=== PATIENT | male | born 1935 | race Caucasian/White ===

== ENCOUNTER 2016-10-01 18:00 | Outpatient (RCR) | payer MEDICARE, OTHER ==
[~2016-10-01 18:00] MED LIST: AC500T PO; ASP81CT PO; ATRV10T PO; CHOL200035 PO; FERR-57 PO; LEVO75TA57 PO; MELO15TA14 PO; METR500T PO; MTF500T PO; MULT-963 PO; NF-ESOM40C PO; OMEG1CAP51 PO; OMEG1CAP74 PO; PANT40TA PO; PEG250PW PO; UBID100C17 PO; VITAMIN D3
--- OUTSIDE RECORDS SUMMARY | 2016-10-02 13:48 | XMS REPORT | Continuity of Care Document ---
Author Author [facility] Organization [facility] Address Unknown Phone Unavailable Allergies Active Description Code Type Severity Reaction Onset Reported/Identified Relationship to Patient Clinical Status Yes No Known Drug Allergies [id number] Drug Allergy Unknown N/ A 10/23/2012 Medications Problems Date Dx Coded Attending Type Code Diagnosis Diagnosed By 06/27/1504 MIGUEL HANKS, LOREN Schmitt Ot Z47.1 06/27/1504 LOREN RIVERA MD Ot Z96.651 10/24/2012 Ot 079.99 10/24/2012 Ot 244.9 10/24/2012 Ot 250.00 10/24/2012 Ot 272.4 10/24/2012 Ot 285.9 10/24/2012 Ot 530.81 10/24/2012 Ot 560.1 10/24/2012 Ot 715.90 10/28/2012 Ot 280.9 10/28/2012 Ot 532.90 10/28/2012 Ot 535.50 10/28/2012 Ot 562.11 10/28/2012 Ot 569.0 02/02/2013 SHRUTHI HANKS, SHERRILL Siegel Ot 532.90 02/02/2013 SHRUTHI HANKS, SHERRILL Siegel Ot 553.3 11/11/2014 Ot 396.3 11/11/2014 Ot 397.0 11/11/2014 Ot 785.2 11/11/2014 Ot 241.0 11/11/2014 Ot 285.9 11/11/2014 Ot 789.00 11/11/2014 Ot V72.84 11/11/2014 SHRUTHI HANKS, SHERRILL Siegel Ot V72.84 11/11/2014 JUANCARLOS BARKSDALE BASKET MENDER Ot 715.36 11/11/2014 JUANCARLOS BARKSDALE BASKET MENDER Ot 719.46 07/11/2015 Ot 241.0 07/11/2015 Ot 285.9 07/11/2015 Ot 789.00 07/11/2015 Ot V72.84 07/11/2015 SHRUTHI HANKS, SHERRILL Siegel Ot V72.84 07/11/2015 SHAMIRLORENSA Christal MORRISON Ot 715.36 07/11/2015 JUANCARLOS BARKSDALE Ot 719.46 08/22/2015 LOREN RIVERA MD Ot Z47.1 08/22/2015 LOREN RIVERA MD Ot Z96.651 Procedures Results Encounters ACCT No. Visit Date/Time Discharge Status Pt. Type Provider Facility Loc./Unit Complaint [id number] 08/17/2015 08:40:00 2015 15:05:00 DIS Outpatient LOREN RIVERA MD [facility] REHAB [id number] 10/19/2013 11:40:00 2013 23:59:59 CLS Outpatient JUANCARLOS BARKSDALE [facility] RAD [id number] 02/02/2013 07:52:00 2012 11:00:00 DIS Outpatient SHERRILL HAWKINS MD [facility] [id number] 01/28/2013 08:20:00 2012 23:59:59 CLS Outpatient SHERRILL HAWKINS MD [facility] PREOP [id number] 10/28/2012 12:11:00 Document Registration [id number] 10/27/2012 11:05:00 Document Registration [id number] 10/26/2012 06:18:00 Document Registration [id number] 10/23/2012 10:47:00 Document Registration [id number] 04/24/2010 09:43:00 Document Registration [id number] 06/08/2009 08:16:00 Document Registration
== END 2016-12-30 | disposition home or self-care (01) ==
LOC: DSME 18:00
PROVIDERS: ATTEND Family Medicine
DX: E11.9 Type 2 diabetes mellitus without complications (principal)

== ENCOUNTER 2017-09-06 09:28 | Emergency (ER) | payer OTHER, MEDICARE ==
[~2017-09-06] VITALS: Ht 180.3 cm; Wt 86.2 kg
[2017-09-06] MEDS ORDERED: TETANUS,DIPTH,PERTUSS P/F (BOOSTRIX) 0.5 ML VIAL IM STA (09:44)
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
[2017-09-06 10:57] VITALS: BP 178/98
--- OUTSIDE RECORDS SUMMARY | 2017-09-08 08:05 | XMS REPORT | Continuity of Care Document ---
Author Author [facility] Organization [facility] Address Unknown Phone Unavailable Allergies Active Description Code Type Severity Reaction Onset Reported/Identified Relationship to Patient Clinical Status Yes No Known Drug Allergies [id number] Drug Allergy Unknown N/A 10/23/2012 Medications There is no data. Problems Date Dx Coded Attending Type Code Diagnosis Diagnosed By 06/27/1504 LOREN RIVERA MD Ot Z47.1 06/27/1504 LOREN RIVERA MD Ot [...] SHERRILL Siegel Ot V72.84 11/11/2014 JUANCARLOS BARKSDALE PERINATAL INSTRUCTOR Ot 715.36 11/11/2014 JUANCARLOS BARKSDALE PERINATAL INSTRUCTOR Ot 719.46 07/11/2015 Ot 241.0 07/11/2015 Ot 285.9 07/11/2015 Ot 789.00 07/11/2015 Ot V72.84 07/11/2015 SHERRILL HAWKINS MD Ot V72.84 07/11/2015 JUANCARLOS BARKSDALE Ot 715.36 07/11/2015 JUANCARLOS BARKSDALE PERINATAL INSTRUCTOR Ot 719.46 08/22/2015 LOREN RIVERA MD Ot Z47.1 08/22/2015 LOREN RIVERA MD Ot Z96.651 10/05/2016 ORENDER DO, COMFORT S Ot E11.9 TYPE 2 DIABETES MELLITUS WITHOUT COMPLIC 10/05/2016 ORENDER DO, COMFORT S Ot E11.9 TYPE 2 DIABETES MELLITUS WITHOUT COMPLIC 11/19/2016 ORENDER DO, COMFORT S Ot E11.9 TYPE 2 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 Results There is no data. Encounters ACCT No. Visit Date/Time Discharge Status Pt. Type Provider Facility Loc./Unit Complaint [id number] 12/31/2016 18:00:00 12/31/2016 23:59:59 CLS Preadmit MONICANDER OLU JEANCOMFORT S [facility] DSME TYPE 2 DIABETES [id number] 10/01/2016 18:00:00 12/30/2016 00:01:00 DIS Outpatient PAUL JEAN COMFORT S [facility] DSME TYPE 2 DIABETES [id number] 08/17/2015 08:40:00 08/22/2015 15:05:00 DIS Outpatient LOREN RIVERA MD [facility] REHAB [id number] 10/19/2013 11:40:00 10/19/2013 23:59:59 CLS Outpatient JUANCARLOS BARKSDALE [facility] [id number] 02/02/2013 07:52:00 02/02/2013 11:00:00 DIS Outpatient SHERRILL HAWKINS MD [facility] [id number] 01/28/2013 08:20:00 01/28/2013 23:59:59 CLS Outpatient SHERRILL HAWKINS MD [facility] PREOP [id number] 10/28/2012 12:11:00 Document Registration [id number] 10/27/2012 11:05:00 Document Registration [id number] 10/26/2012 06:18:00 Document Registration [id number] 10/23/2012 10:47:00 Document Registration [id number] 04/24/2010 09:43:00 Document Registration [id number] 06/08/2009 08:16:00 Document Registration
== END 2017-09-06 10:57 | disposition home or self-care (01) ==
LOC: EDUNIT# 09:28 → ER 09:29
DX: S89.302A Unspecified physeal fracture of lower end of left fibula, initial encounter for closed fracture (principal); E03.9 Hypothyroidism, unspecified; E11.9 Type 2 diabetes mellitus without complications; K21.9 Gastro-esophageal reflux disease without esophagitis; E78.00 Pure hypercholesterolemia, unspecified; Z23 Encounter for immunization; Z79.84 Long term (current) use of oral hypoglycemic drugs; V09.20XA Pedestrian injured in traffic accident involving unspecified motor vehicles, initial encounter
CPT/HCPCS: 73610; 73630; 90471; 90715; 99283

== ENCOUNTER → 2017-12-30 | Outpatient (CLI) | payer MEDICARE, OTHER ==
--- NOTE | 2017-12-30 10:23 | Diagnostic Imaging Report ---
PROCEDURE: US carotid duplex, bilateral. TECHNIQUE: Multiple real-time grayscale images were obtained over the carotid arteries in various projections, bilaterally. Additional duplex Doppler and color Doppler images were also obtained. INDICATION: Right carotid bruit FINDINGS: There are no focally elevated velocities in either internal carotid artery. The ICA/CCA ratios are within normal limits, bilaterally. There is antegrade flow in the vertebral arteries, bilaterally. Grayscale images demonstrate minimal carotid plaque, bilaterally. IMPRESSION: Minimal bilateral carotid plaque however spectral analysis shows no evidence of a hemodynamically significant stenosis in either internal carotid artery. Parameters based on the consensus panel Rothman-Scale and Doppler ultrasound criteria published May 2003, Radiology, Volume 229. DOPPLER (peak systolic velocity M/S Right Left CCA .77 .90 ICA Proximal .71 .96 ICA Mid .81 1.02 ICA Distal .68 .91 RATIO 1.1 1.1 ECA 1.08 .73 VERT .47 .47 Dictated by: Dictated on workstation # [id number]
== END ==
LOC: RAD 09:08
PROVIDERS: ATTEND Family Medicine
DX: R09.89 Other specified symptoms and signs involving the circulatory and respiratory systems (principal)
CPT/HCPCS: 93880